=== PATIENT | male | born 1965 | race Caucasian/White ===

== ENCOUNTER 2017-07-22 17:29 | Observation (INO) | payer BC ==
[~2017-07-22] VITALS: Ht 182.9 cm; Wt 89.9 kg
[2017-07-22] MEDS ORDERED: AMBIEN 10MG10 MG PO (17:55)
[2017-07-22] MEDS ORDERED: PRINIVIL10 MG PO (17:55)
[2017-07-22] MEDS ORDERED: LIPITOR 40MG TA40 MG PO (17:56)
[2017-07-22 19:37] LABS: ADJUSTED CALCIUM 8.4 mg/dL (8.4-10.2); BILIRUBIN,TOTAL 0.4 mg/dL (0.0-1.0); CALCIUM 9.2 mg/dL (8.4-10.2); CREATININE, serum 0.94 mg/dL (0.66-1.25); POTASSIUM 3.8 mmol/L (3.4-5.0); TOTAL PROTEIN 8.1 gm/dL (6.4-8.2)
[2017-07-22 19:46] LABS: BASO % 0.4 % (0.0-2.0); EOS # 0.1 (0.0-0.7); EOS % 1.5 % (0-4.0); GRAN # 2.5 (1.4-6.5); GRAN % 47.1 % (42.2-75.2); HEMATOCRIT 42.3 % (42.0-52.0); HEMOGLOBIN 14.5 g/dl (13.5-18.0); LYMPH # 2.3 (1.2-3.4); LYMPH % 43.4 % (20.0-51.0); MEAN CELL VOLUME 89 fl (80.0-100.0); MEAN CORPUSCULAR HEMOGLOBIN 31 pg (27.0-31.0); MEAN CORPUSCULAR HGB CONC 34 g/dl (33.0-37.0); MEAN PLATELET VOLUME 9.1 fl (7.4-10.4); MONO # 0.4 (0.1-0.6); MONO % 7.4 % (1.7-9.3); PLATELET COUNT 268 K/mm3 (130-400); RED BLOOD COUNT 4.73 M/mm3 (4.20-5.60); WHITE BLOOD COUNT 5.3 K/mm3 (4.8-10.8)
[2017-07-22 22:09] VITALS: BP 163/98; PULSE 70; TEMP 98.5
[2017-07-23] VITALS (9 sets, daily range): BP systolic 130–170; BP diastolic 80–99; PULSE 64–84; TEMP 97.8–99.2
[2017-07-23 03:59] LABS: AMPHETAMINE URINE NEGATIVE; BARBITURATES URINE NEGATIVE; BENZODIAZEPINES URINE POSITIVE; BUPRENORPHINE URINE NEGATIVE; METHADONE URINE NEGATIVE; OPIATES URINE NEGATIVE; OXYCODONE URINE NEGATIVE; PHENCYCLIDINE URINE NEGATIVE; PROPOXYPHENE URINE NEGATIVE; THC CANNABINOIDS URINE NEGATIVE; TRICYCLIC ANTIDEPRESS URINE NEGATIVE
[2017-07-23 07:15] LABS: PROTHROMBIN TIME 11.9 SECONDS (9.7-12.8)
[2017-07-23 07:16] LABS: BASO % 0.6 % (0.0-2.0); EOS # 0.1 (0.0-0.7); EOS % 2.9 % (0-4.0); GRAN # 2.3 (1.4-6.5); GRAN % 47.8 % (42.2-75.2); LYMPH % 41.2 % (20.0-51.0); MEAN CELL VOLUME 90 fl (80.0-100.0); MEAN CORPUSCULAR HGB CONC 34 g/dl (33.0-37.0); MEAN PLATELET VOLUME 9.2 fl (7.4-10.4); MONO # 0.4 (0.1-0.6); MONO % 7.3 % (1.7-9.3); PLATELET COUNT 223 K/mm3 (130-400); RED BLOOD COUNT 3.96 M/mm3 (4.20-5.60); WHITE BLOOD COUNT 4.8 K/mm3 (4.8-10.8)
[2017-07-23 07:24] LABS: ADJUSTED CALCIUM 8.3 mg/dL (8.4-10.2); ALBUMIN 3.9 gm/dL (3.5-5.0); BILIRUBIN,TOTAL 0.5 mg/dL (0.0-1.0); CALCIUM 8.2 mg/dL (8.4-10.2); CREATININE, serum 0.92 mg/dL (0.66-1.25); MAGNESIUM 1.6 mg/dL (1.6-2.3); POTASSIUM 3.3 mmol/L (3.4-5.0); TOTAL PROTEIN 6.6 gm/dL (6.4-8.2)
[2017-07-23 07:25] LABS: HEMATOCRIT 35.7 % (42.0-52.0); HEMOGLOBIN 12.2 g/dl (13.5-18.0); MEAN CORPUSCULAR HEMOGLOBIN 31 pg (27.0-31.0)
[2017-07-23] MEDS ORDERED: FOLIC ACID 11 MG/TA1 PO (15:57)
[2017-07-23] MEDS ORDERED: MULTI VITAMINS1 TAB PO (15:57)
[2017-07-23] MEDS ORDERED: THIAMINE 1100 MG/TAB PO (15:57)
[2017-07-24] VITALS (7 sets, daily range): BP systolic 154–174; BP diastolic 87–104; PULSE 64–80; TEMP 98–98.8
[2017-07-24 06:53] LABS: BASO % 0.5 % (0.0-2.0); EOS # 0.1 (0.0-0.7); EOS % 2.3 % (0-4.0); GRAN # 4.2 (1.4-6.5); GRAN % 69.5 % (42.2-75.2); LYMPH # 1.2 (1.2-3.4); LYMPH % 19.9 % (20.0-51.0); MEAN CELL VOLUME 91 fl (80.0-100.0); MEAN CORPUSCULAR HEMOGLOBIN 31 pg (27.0-31.0); MEAN CORPUSCULAR HGB CONC 34 g/dl (33.0-37.0); MONO # 0.5 (0.1-0.6); MONO % 7.6 % (1.7-9.3); PLATELET COUNT 215 K/mm3 (130-400); RED BLOOD COUNT 3.91 M/mm3 (4.20-5.60); WHITE BLOOD COUNT 6.1 K/mm3 (4.8-10.8)
[2017-07-24 06:56] LABS: HEMATOCRIT 35.7 % (42.0-52.0)
[2017-07-24 07:03] LABS: ADJUSTED CALCIUM 9.1 mg/dL (8.4-10.2); ALBUMIN 3.8 gm/dL (3.5-5.0); BILIRUBIN,TOTAL 1.1 mg/dL (0.0-1.0); CALCIUM 8.9 mg/dL (8.4-10.2); CREATININE, serum 0.87 mg/dL (0.66-1.25); MAGNESIUM 1.9 mg/dL (1.6-2.3); POTASSIUM 3.9 mmol/L (3.4-5.0); TOTAL PROTEIN 6.5 gm/dL (6.4-8.2)
[2017-07-24] MEDS ORDERED: HCTZ12.5TAB PO (12:44)
== END 2017-07-24 13:30 | disposition home or self-care (01) ==
LOC: COL.ER 17:29 → MEDICAL 21:16
PROVIDERS: Emergency Medicine; Nurse Practitioner; Nurse Practitioner Family
DX: F10.229 Alcohol dependence with intoxication, unspecified (principal); I10 Essential (primary) hypertension; E78.5 Hyperlipidemia, unspecified; G47.00 Insomnia, unspecified; F41.9 Anxiety disorder, unspecified; Z82.49 Family history of ischemic heart disease and other diseases of the circulatory system
CPT/HCPCS: G0378; J3475; J7030

== ENCOUNTER 2019-07-31 18:38 | Inpatient (IN) | payer BC ==
[~2019-07-31] VITALS: Ht 182.9 cm; Wt 90.2 kg
[~2019-07-31 18:38] MED LIST: AMBIEN 10MG10 MG PO; FOLIC ACID 11 MG/TA1 PO; HCTZ12.5TAB PO; LIPITOR 40MG TA40 MG PO; MULTI VITAMINS1 TAB PO; PRINIVIL10 MG PO; THIAMINE 1100 MG/TAB PO
[2019-07-31 19:37] LABS: BASO % 0.2 % (0.0-2.0); GRAN # 3.3 (1.4-6.5); GRAN % 53.3 % (42.2-75.2); HEMOGLOBIN 14.6 g/dl (13.5-18.0); LYMPH # 2.4 (1.2-3.4); LYMPH % 38.2 % (20.0-51.0); MEAN CELL VOLUME 87 fl (80.0-100.0); MEAN CORPUSCULAR HEMOGLOBIN 31 pg (27.0-31.0); MEAN CORPUSCULAR HGB CONC 36 g/dl (33.0-37.0); MEAN PLATELET VOLUME 9.7 fl (7.4-10.4); MONO # 0.5 (0.1-0.6); MONO % 8.3 % (1.7-9.3); PLATELET COUNT 145 K/mm3 (130-400); RED BLOOD COUNT 4.72 M/mm3 (4.20-5.60); REDCELL DISTRIBUTION WIDTH-CV 12.9 % (11.5-14.5)
[2019-07-31 19:58] LABS: ALANINE AMINOTRANSFERASE 81 U/L (21-72); ALKALINE PHOSPHATASE 63 U/L (50-136); ANION GAP 20 mmol/L (7-16); AST,SGOT 100 U/L (15-37); BLOOD UREA NITROGEN 14 mg/dL (9-20); CALCIUM 8.5 mg/dL (8.4-10.2); CARBON DIOXIDE 22 mmol/L (22-30); CHLORIDE 90 mmol/L (98-107); CREATININE, serum 0.63 (0.66-1.25); GLUCOSE 103 mg/dL (74-106); LIPASE 278 U/L (23-300); PHOSPHOROUS 3.2 mg/dL (2.5-4.5); POTASSIUM 4.1 mmol/L (3.4-5.0); SODIUM 132 mmol/L (137-145); TOTAL PROTEIN 8.5 gm/dL (6.4-8.2)
[2019-07-31 20:01] LABS: COLLECTION METHOD CLEAN CATCH
[2019-07-31 20:06] LABS: ALCOHOL(ethanol),MEDICAL 448 mg/dL; C-REACTIVE PROTEIN < 0.5 mg/dL (0.0-0.9)
[2019-07-31 20:27] LABS: MUCOUS Present /lpf; PH 6 (5-8); SQUAMOUS EPITHELIAL 0-2 /hpf; URINE APPEARANCE Hazy; URINE BACTERIA Rare /hpf; URINE BILIRUBIN Negative (NEGATIVE); URINE BLOOD 2+ (NEGATIVE); URINE CALCIUM OXALATE CRYSTAL Present /hpf; URINE COLOR Amber; URINE GLUCOSE 1+ (NEGATIVE); URINE KETONE 1+ (NEGATIVE); URINE LEUKOCYTE ESTERASE Negative (NEGATIVE); URINE NITRATE Negative (NEGATIVE); URINE PROTEIN(semi-quant) 2+ (NEGATIVE); URINE UROBILINOGEN >=4.0 mg/dL (NEGATIVE)
--- NOTE | 2019-07-31 20:35 | NUR ---
REPORT RCVD FROM ELIZABETH BAUGH IN ED.
--- NOTE | 2019-07-31 21:00 | NUR ---
PT ARRIVED TO MEDICAL FLOOR ROOM 311. ASSESSMENT COMPLETED. PT HAS NO C/O PAIN OR DISCOMFORT AT THIS TIME. PT DOES STATE HE HAS SOME ANXIETY. PT WAS GIVEN ATIVAN IN THE ED. PT IS VISUALLY INTOXICATED, NOT CURRENTLY SCORING ON THE CIWA PROTOCOL. NEURO CHECKS Q4H PER ORDERS. PT HAS BEEN ORIENTED TO ROOM AND NOURISHMENT ROOM. AND DAUGHTER ACCOMPANIED PT TO THE ROOM. WILL STAY THE NIGHT. CALL LIGHT AND PERSONAL EFFECTS AT BEDSIDE AND WITHIN REACH. NO FURTHER CONCERS AT THIS TIME. WILL CONTINUE TO MONITOR THROUGHOUT THE NIGHT.
[2019-07-31 21:54] LABS: INR 0.9 (0.8-3.0); PROTHROMBIN TIME 10.4 SECONDS (9.7-12.8)
[2019-07-31 21:57] LABS: PARTIAL THROMBOPLASTIN TIME 27.7 SECONDS (26.0-37.0)
[2019-07-31] MEDS ORDERED: PRINIVIL20 MG PO (22:06)
[2019-07-31] MEDS ORDERED: B COMPLEX #11 TAB PO (22:07)
[2019-07-31 23:14] VITALS: BP 165/89; PULSE 97; TEMP 98.3
[2019-07-31 23:21] VITALS: BP 148/89; PULSE 92; TEMP 98.3
[2019-08-01] VITALS (12 sets, daily range): BP systolic 125–160; BP diastolic 72–100; PULSE 70–102; TEMP 97.8–98.7
[2019-08-01 01:22] LABS: COLLECTION METHOD CLEAN CATCH
[2019-08-01 01:34] LABS: TRICYCLIC ANTIDEPRESS URINE NEGATIVE
[2019-08-01 01:58] LABS: MUCOUS Present /lpf; PH 6 (5-8); SQUAMOUS EPITHELIAL 0-2 /hpf; URINE APPEARANCE Clear; URINE BACTERIA None Seen /hpf; URINE BILIRUBIN Negative (NEGATIVE); URINE BLOOD 1+ (NEGATIVE); URINE COLOR Yellow; URINE GLUCOSE Negative (NEGATIVE); URINE KETONE Trace (NEGATIVE); URINE LEUKOCYTE ESTERASE Negative (NEGATIVE); URINE NITRATE Negative (NEGATIVE); URINE PROTEIN(semi-quant) Negative (NEGATIVE); URINE RBC 0-2 /hpf; URINE UROBILINOGEN Negative (NEGATIVE); URINE WBC 0-2 /hpf
[2019-08-01 05:57] LABS: BASO % 0.1 % (0.0-2.0); EOS % 0.4 % (0-4.0); GRAN # 4.7 (1.4-6.5); GRAN % 66.4 % (42.2-75.2); LYMPH # 1.8 (1.2-3.4); LYMPH % 24.8 % (20.0-51.0); MEAN CELL VOLUME 88 fl (80.0-100.0); MEAN CORPUSCULAR HGB CONC 35 g/dl (33.0-37.0); MEAN PLATELET VOLUME 9.6 fl (7.4-10.4); MONO # 0.6 (0.1-0.6); MONO % 8.2 % (1.7-9.3); PLATELET COUNT 114 K/mm3 (130-400); RED BLOOD COUNT 3.93 M/mm3 (4.20-5.60); REDCELL DISTRIBUTION WIDTH-CV 13.1 % (11.5-14.5)
--- NOTE | 2019-08-01 05:58 | NUR ---
PT HAD A GENERALLY UNEVENTFUL NIGHT. PT HAD SOME SIGNIFICANT ANXIETY UPON ADMISSION THAT HAS EVENED OUT AFTER ATIVAN ADMINISTRATION PER MAR, AND SOME SLEEP. PT REMAINS AT BEDSIDE. CALL LIGHT WITHIN REACH, NO C/O PAIN OR DISCOMFORT. NO FURTHER CONCERNS AT THIS TIME.
[2019-08-01 06:02] LABS: HEMATOCRIT 34.7 % (42.0-52.0); HEMOGLOBIN 12.1 g/dl (13.5-18.0); MEAN CORPUSCULAR HEMOGLOBIN 31 pg (27.0-31.0)
[2019-08-01 06:10] LABS: ALBUMIN 3.9 gm/dL (3.5-5.0); BILIRUBIN,TOTAL 0.9 mg/dL (0.0-1.0); CALCIUM 7.6 mg/dL (8.4-10.2); CREATININE, serum 0.78 (0.66-1.25); POTASSIUM 3.9 mmol/L (3.4-5.0); TOTAL PROTEIN 6.5 gm/dL (6.4-8.2)
--- NOTE | 2019-08-01 07:13 | NUR ---
Report givent to ELIZABETH Kennedy and ELIZABETH Hogan.
--- NOTE | 2019-08-01 08:50 | NUR ---
Pt assessment complete. Pt is laying in bed upon entry, he is A/O x4. His breathing is even and unlabored on RA. Pt denies SOB. No pain reported. Pt reports some nausea, no vomitting. Was able to eat some breakfast. Pt reports "not feeling well this morning". PRN Ativan administered, pt cautioned about ambulating in the room after receiving medication. at bedside and verbalizes understanding. Pt reports he was able to sleep last night. IVF infusing without complications. No needs at this time. Call light within reach. Will continue to monitor.
--- NOTE | 2019-08-01 10:49 | NUR ---
OC met with the patient to discuss discharge plan. The patient lives in [place] with his , Andreina (ph#[phone]), and his in-laws. He reports independence with ADLs and does not have any DME. The patient does not have a primary care provider. He states that he would need to talk to his or for SW to talk to his about whether to get set up with one and where. He states that his gets his medications from a pharmacy in [place] and that she has no difficulties obtaining them. The patient does not have advanced directives completed, but he was interested in obtaining a form for DPOA-HC. OC provided. OC then addressed the patient's alcohol use. He states that he has been drinking around 4-5 gin drinks a night. He states that he is ready to quit. OC discussed the different treatment options: inpatient, outpatient, and AA meetings. The patient reports that he is not interested in any of those options. He states that he has quit cold turkey in the past and was sober for about two years after that. He would prefer to quit cold turkey again and was not interested in any resources for treatment. The patient plans to return home with his family upon discharge. SW to continue to follow.
--- NOTE | 2019-08-01 18:36 | NUR ---
Pt had uneventful day. Started to feel a little worse through the day, little to no appetite. Continues to have tremors. No hallucinations present. IVF continue to infuse without complications. at bedside. POC discussed with family who verbalize understanding. No needs at this time. Call light within reach.
[2019-08-02 02:49] VITALS: BP 158/86; PULSE 75; TEMP 98.6
[2019-08-02 04:11] VITALS: BP 155/92; PULSE 81; TEMP 98.5
[2019-08-02 06:00] VITALS: BP 161/89; PULSE 71; TEMP 98.2
[2019-08-02 07:26] LABS: BASO % 0.2 % (0.0-2.0); EOS # 0.1 (0.0-0.7); EOS % 1.6 % (0-4.0); GRAN # 2.9 (1.4-6.5); GRAN % 64.2 % (42.2-75.2); HEMOGLOBIN 11.9 g/dl (13.5-18.0); LYMPH # 1.1 (1.2-3.4); LYMPH % 24.8 % (20.0-51.0); MEAN CELL VOLUME 90 fl (80.0-100.0); MEAN CORPUSCULAR HEMOGLOBIN 31 pg (27.0-31.0); MEAN CORPUSCULAR HGB CONC 35 g/dl (33.0-37.0); MEAN PLATELET VOLUME 10.2 fl (7.4-10.4); MONO # 0.4 (0.1-0.6); PLATELET COUNT 98 K/mm3 (130-400); RED BLOOD COUNT 3.81 M/mm3 (4.20-5.60); REDCELL DISTRIBUTION WIDTH-CV 13.1 % (11.5-14.5)
[2019-08-02 07:35] LABS: HEMATOCRIT 34.4 % (42.0-52.0)
[2019-08-02 07:41] LABS: ALBUMIN 3.8 gm/dL (3.5-5.0); BILIRUBIN,TOTAL 0.8 mg/dL (0.0-1.0); CALCIUM 8.4 mg/dL (8.4-10.2); CREATININE, serum 0.77 (0.66-1.25); POTASSIUM 3.8 mmol/L (3.4-5.0); TOTAL PROTEIN 6.4 gm/dL (6.4-8.2)
[2019-08-02 08:11] VITALS: BP 135/78; PULSE 71; TEMP 98.8
--- NOTE | 2019-08-02 08:21 | NUR ---
Pt assessment complete. Pt is laying in bed upon entry, arouses to voice. Pt is oriented x4. Breathing is even and unlabored on RA. Pt denies SOB. No pain at this time. Pt reports appetite is increasing, denies N/V. Pt reports getting more sleep last night. See CIWA assessment. IVF infusing without complications. at bedside, they deny needs at this time. Call light within reach.
[2019-08-02] MEDS ORDERED: FOLIC ACID 11 MG/TA1 PO (09:40)
[2019-08-02] MEDS ORDERED: DUO-KAPS1 CAP PO (09:42)
--- NOTE | 2019-08-02 10:18 | NUR ---
Discharge instructions and paperwork reviewed with patient and his . All questions answered at this time. IV to LFA dc'd catheter tip intact. No further needs at this time.
[2019-08-02] MEDS ORDERED: THIAMINE 1100 MG/TAB PO (10:31)
--- NOTE | 2019-08-02 11:00 | NUR ---
Pt walked out of facility at this time.
== END 2019-08-02 11:31 | disposition home or self-care (01) | DRG 897 ==
LOC: COL.ER 18:38 → MEDICAL 20:17 → COL.ER 20:17 → MEDICAL 08-02 03:00
PROVIDERS: Emergency Medicine; Nurse Practitioner Family; Physician Assistant; ADMIT Internal Medicine
PROC: HZ2ZZZZ Detoxification Services for Substance Abuse Treatment (ICD-10-PCS; principal; 2019-07-31)
DX: F10.129 Alcohol abuse with intoxication, unspecified (principal); E87.1 Hypo-osmolality and hyponatremia; E87.2 Acidosis; I10 Essential (primary) hypertension; E78.5 Hyperlipidemia, unspecified; G47.00 Insomnia, unspecified; F41.9 Anxiety disorder, unspecified; F17.200 Nicotine dependence, unspecified, uncomplicated; Y90.8 Blood alcohol level of 240 mg/100 ml or more; G31.2 Degeneration of nervous system due to alcohol; E87.8 Other disorders of electrolyte and fluid balance, not elsewhere classified
CPT/HCPCS: 99222-AI; 99239; C9113; J2060; J2405; J3411; J3475; J7030

== ENCOUNTER 2020-02-06 22:58 | Emergency (ER) | payer BC ==
[~2020-02-06] VITALS: Ht 182.9 cm; Wt 86.4 kg
[~2020-02-06 22:58] MED LIST changes: +B COMPLEX #11 TAB PO; +DUO-KAPS1 CAP PO; +PRINIVIL20 MG PO
[2020-02-06] MEDS ORDERED: LIBRIUM 25M25 MG/CAP PO ×2 (23:25→23:26)
[2020-02-06] MEDS ORDERED: NEURONTIN300 MG/CAP PO (23:25)
[2020-02-06 23:31] LABS: BASO % 0.3 % (0.0-2.0); EOS % 0.2 % (0-4.0); GRAN # 3.9 (1.4-6.5); GRAN % 62.2 % (42.2-75.2); HEMATOCRIT 42.1 % (42.0-52.0); HEMOGLOBIN 14.7 g/dl (13.5-18.0); LYMPH % 31.5 % (20.0-51.0); MEAN CELL VOLUME 85 fl (80.0-100.0); MEAN CORPUSCULAR HEMOGLOBIN 30 pg (27.0-31.0); MEAN CORPUSCULAR HGB CONC 35 g/dl (33.0-37.0); MEAN PLATELET VOLUME 10.2 fl (7.4-10.4); MONO # 0.3 (0.1-0.6); MONO % 5.5 % (1.7-9.3); PLATELET COUNT 164 K/mm3 (130-400); RED BLOOD COUNT 4.94 M/mm3 (4.20-5.60)
[2020-02-06 23:59] LABS: ALBUMIN 4.5 gm/dL (3.5-5.0); BILIRUBIN,TOTAL 1.1 mg/dL (0.0-1.0); CALCIUM 8.3 mg/dL (8.4-10.2); CREATININE, serum 0.95 (0.66-1.25); POTASSIUM 4.2 mmol/L (3.4-5.0); TOTAL PROTEIN 7.6 gm/dL (6.4-8.2)
[2020-02-07 05:40] VITALS: TEMP 97.8
[2020-02-07] MEDS ORDERED: ATIVAN 1MG T1 MG/TAB PO (10:49)
[2020-02-07 11:15] VITALS: BP 138/99; PULSE 108
--- NOTE | 2020-02-07 12:43 | NUR ---
[employer] responded to the ED for a social media specialist consult for the patient due needing alcohol resouces and/or inpatient rehab placement. OC met with the patient. The patient's last drink was, 02/05 and he reports he had 1/2 pint of Gin. The patient states he has been a "functioning alcoholic" for many years. He states he is involved with his work and he does not have time for rehab. He came to the hosptial to make sure he was ok and not going to from detoxing. He states he is not interested in rehab and informed SW he has never been to rehab. The patient's nurse informed OC that the patient's moved the patient into his own apartment approximately a week ago. And that he also has been to treatment at [facility]. OC and the patient's nurse met with the patient. The patient was not open to rehab. He wanted to know what he needed to discharge home. OC provided alcohol rehab resources for inpatient and outpatient services. The patient has two daughters 19 and 21 and a [id number] that are supportive. His [id number] will take the patient home. OC collaborted the above information with the patient's nurse.
== END 2020-02-07 11:17 | disposition home or self-care (01) ==
LOC: COL.ER 22:58
PROVIDERS: Emergency Medicine
DX: F10.129 Alcohol abuse with intoxication, unspecified (principal); I10 Essential (primary) hypertension; Z79.899 Other long term (current) drug therapy
CPT/HCPCS: J2060; J7030